=== PATIENT | female | born 1980 | race American Indian/Alaskan Native ===

== ENCOUNTER 2017-10-20 16:24 | Outpatient (CLI) | payer OTHER ==
[2017-10-20] MEDS ORDERED: LACTATED RINGERS 500 ML IV ONE (17:00)
[2017-10-20 17:17] VITALS: BP 99/58
[2017-10-20 17:21] LABS: Bacteria,Urine 1+ /HPF (Negative); Bilirubin,Urine NEG (Negative); Blood,Urine SM (Negative); Ketones,Urine NEG (Negative); Leukocyte Esterase,Urine NEG (Negative); Mucus,Urine FEW /HPF; Nitrite,Urine NEG (Negative); Protein,Urine <15 mg/dL mg/dL (Negative); Urobilinogen,Urine < 2.0 mg/dL (<2.0); WBC,Urine < 1.0 /HPF (0.0-6.0)
== END 2017-10-20 17:37 | disposition home or self-care (01) ==
LOC: TRG 16:24
PROVIDERS: ATTEND Obstetrics & Gynecology
DX: O09.522 Supervision of elderly multigravida, second trimester (principal); O47.02 False labor before 37 completed weeks of gestation, second trimester; Z3A.24 24 weeks gestation of pregnancy
CPT/HCPCS: 59025; 81001

== ENCOUNTER 2017-12-29 00:50 | Emergency (ER) | payer OTHER ==
[2017-12-29] MEDS ORDERED: ASPIRIN PO ONE (01:22)
[2017-12-29 02:18] LABS: Basophils % (Auto) 0.2 % (0.0-1.8); Eosinophils % (Auto) 0.1 % (0.0-4.3); Hematocrit 29.5 % (30.3-42.9); Hemoglobin 9.6 gm/dl (10.1-14.3); Lymphocytes # (Auto) 1.7 K/mm3 (1.2-5.4); Lymphocytes % (Auto) 23.2 % (13.4-35.0); Mean Corpuscular HGB Conc 32 % (30-34); Mean Corpuscular Volume 76 fl (79-97); Monocytes # (Auto) 0.5 K/mm3 (0.0-0.8); Monocytes % (Auto) 6.3 % (0.0-7.3); Platelet Count 220 K/mm3 (140-440); Red Blood Count 3.91 M/mm3 (3.65-5.03); Red Cell Distribution Width 16.5 % (13.2-15.2)
[2017-12-29 02:19] LABS: Mean Corpuscular Hemoglobin 25 pg (28-32)
[2017-12-29 03:02] LABS: BUN/Creatinine Ratio 12; Blood Urea Nitrogen 7 mg/dL (7-17); Calcium 8.8 mg/dL (8.4-10.2); Hemolysis Index 5
[2017-12-29] MEDS ORDERED: TYLENOL PO ONE (03:43)
--- NOTE | 2017-12-29 05:31 | Emergency Department Report ---
ED Chest Pain HPI - General Chief Complaint: Chest Pain Stated Complaint: CHEST PAIN Time Seen by Provider: 12/29/17 02:58 Source: patient Mode of arrival: Ambulatory Limitations: No Limitations - History of Present Illness Initial Comments: 37-year-old female presents to the emergency department with a complaint of some midsternal chest pain that started earlier today. She denies any shortness of breath, back pain, nausea, vomiting, fever or diaphoresis. She denies any past medical history. She is not a smoker and denies any illicit drug use. She denies any family history of early cardiac disease or cardiac events. The patient is currently about 34 weeks at . 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 No recent travel or sick contacts and 1. She denies any vaginal bleeding or discharge. She did not take anything for her symptoms prior to presentation. Patient complained of some mild abdominal pains through triage but that has since resolved. Severity scale (0 -10): 7 - Related Data Allergies Allergy/AdvReac Type Severity Reaction Status Date / Time No Known Allergies Allergy Unverified 10/20/17 16:40 Heart Score - HEART Score History: Slightly suspicious EKG: Normal Age: < 45 Risk factors: No known risk factors Troponin: < normal limit HEART Score: 0 - Critical Actions Critical Actions: 0-3 pts:0.9-1.7%risk of adverse cardiac event.Candidate for discharge ED Review of Systems ROS: Stated complaint: CHEST PAIN Other details as noted in HPI Comment: All other systems reviewed and negative Constitutional: denies: chills, fever Eyes: denies: eye pain, eye discharge, vision change ENT: denies: ear pain, throat pain Respiratory: denies: cough, shortness of breath, wheezing Cardiovascular: chest pain. denies: palpitations Gastrointestinal: abdominal pain. denies: nausea, vomiting Genitourinary: denies: urgency, dysuria, discharge Musculoskeletal: denies: back pain, joint swelling, arthralgia Skin: denies: rash, lesions Neurological: denies: headache, weakness, paresthesias ED Past Medical Hx - Past Medical History Previous Medical History?: No Hx Hypertension: No Hx Diabetes: No Hx Deep Vein Thrombosis: No Hx Renal Disease: No Hx Sickle Cell Disease: No Hx Seizures: No Hx Asthma: No Hx HIV: No - Surgical History Past Surgical History?: No Additional Surgical History: c sectX3 - Social History Smoking Status: Never Smoker Substance Use Type: None ED Physical Exam - General Limitations: No Limitations - Other Other exam information: GENERAL: The patient is well-developed well-nourished. HENT: Normocephalic. Atraumatic. Patient has moist mucous membranes. EYES: Extraocular motions are intact. Pupils equal reactive to light bilaterally. NECK: Supple. Trachea is midline. CHEST/LUNGS: Clear to auscultation. There is no respiratory distress noted. Mid upper chest wall discomfort is reproducible to palpation. No crepitus or deformity. HEART/CARDIOVASCULAR: Regular. There is no tachycardia. There is no murmur. ABDOMEN: Abdomen is soft, nontender. Patient has normal bowel sounds. Gravid uterus is palpable in the upper abdomen. SKIN: Skin is warm and dry. NEURO: The patient is awake, alert, and oriented. The patient is cooperative. The patient has no focal neurologic deficits. The patient has normal speech. MUSCULOSKELETAL: There is no tenderness or deformity. There is no limitation range of motion. There is no evidence of acute injury. ED Course Vital Signs 12/29/17 12/29/17 12/29/17 01:01 01:59 04:49 Temperature 98.7 F 98.3 F Pulse Rate 108 H 88 Respiratory 18 16 18 Rate Blood Pressure 107/67 Blood Pressure 101/58 [Left] O2 Sat by Pulse 98 99 Oximetry JACQUELINE score - Jacqueline Score Age > 65: (0) No Aspirin use within the Past 7 Days: (0) No 3 or more CAD Risk Factors: (0) No 2 or more Angina events in past 24 hrs: (0) No Known CAD with more than 50% Stenosis: (0) No Elevated Cardiac Markers: (0) No ST Deviation Greater than 0.5mm: (0) No JACQUELINE Score: 0 ED Medical Decision Making - Lab Data Result diagrams: 12/29/17 01:45 12/29/17 01:45 - EKG Data -: EKG Interpreted by Nm EKG shows normal: sinus rhythm, axis, intervals, QRS complexes (LVH), ST-T waves (early repolarization) Rate: tachycardia (104 bpm) - EKG Data When compared to previous EKG there are: previous EKG unavailable Interpretation: other (sinus with mild tach at 104, LVH, early repolarization) - Medical Decision Making 37-year-old female presents with some chest pain that started today. Heart and lung sounds are normal to auscultation. Pain is reproducible to palpation. EKG shows LVH and possibly some early repolarization but no ST elevation IA or dysrhythmia. Labs of an unremarkable good and negative troponins 2. The patient declined a chest x-ray being done even though we would shield the abdomen. She understands that without the x-ray I could not definitively tell her if there was any underlying mass, pneumonia or abnormalities but lung sounds were clear to auscultation. She was given a dose of Tylenol and upon reevaluation she says she is feeling greatly improved and the chest pain is almost completely resolved and only shows up with certain movements or with palpation. Patient is low on the Braun score criteria and has a JACQUELINE score of 0. Patient is low on the well's score criteria and is negative on the pulmonary embolism rule out criteria as her tachycardia resolved without any intervention. She has no lower extremities swelling. She has no recent surgery or travel or immobility. Patient had complained of some abdominal pain upon arrival but that had resolved by the time I saw her in the main emergency department and it did not return. There is no vaginal bleeding or discharge. I took the ultrasound bedside and was able to see the intrauterine fetus that appears well-developed and had a visible heartbeat of about 150 bpm. She has been encouraged to follow up with her [employer] and to return to the emergency Department with any worsening of her symptoms or any acute distress. - Differential Diagnosis costochondritis, IA, dysrhythmia, PE Critical Care Time: No Critical care attestation.: If time is entered above; I have spent that time in minutes in the direct care of this critically ill patient, excluding procedure time. ED Disposition Clinical Impression: Costochondritis Qualifiers: Weeks of gestation: 34 weeks Qualified Code(s): Z3A.34 - 34 weeks gestation of Chest pain Qualifiers: Chest pain type: unspecified Qualified Code(s): R07.9 - Chest pain, unspecified Disposition: DC-01 TO HOME OR SELFCARE Is pt being admited?: No Condition: Stable Instructions: Chest Pain (ED), (ED), Costochondritis (ED) Additional Instructions: Please follow-up with your [employer]ER in the next few days. Return to the emergency department with any return of your chest pain, any shortness of breath , or any acute distress. You can take Tylenol every 4 hours, using weight- based dosing, as needed for any discomfort. Referrals: ANA MARIA MAI MD [Primary Care Provider] - 3-5 Days Time of Disposition: 05:31
[2017-12-29 06:04] VITALS: BP 121/83
== END 2017-12-29 05:40 | disposition home or self-care (01) ==
LOC: ED 00:50
DX: O99.513 Diseases of the respiratory system complicating pregnancy, third trimester (principal); M94.0 Chondrocostal junction syndrome [Tietze]; Z3A.34 34 weeks gestation of pregnancy
CPT/HCPCS: 36415; 80048; 84484; 85025; 93005; 93010